=== PATIENT | female | born 1995 | race Two or more races ===

== ENCOUNTER 2018-12-12 16:33 | Emergency (ER) | payer MEDICAID, OTHER ==
[~2018-12-12] VITALS: Ht 157.5 cm; Wt 78.5 kg
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
[2018-12-12] MEDS ORDERED: ACETAMINOPHEN 325 MG TABLET PO ONE (17:30)
[2018-12-12] MEDS ORDERED: ACETAMINOPHEN ES 500 MG TABLET ONE (17:32)
--- NOTE | 2018-12-12 19:00 | NUR ---
Wound cleansed, applied Bacitracin ointment, and covered with bandage. Rx provided, Patient discharged to home in stable condition. Written and verbal after care instructions given. Patient verbalizes understanding of instruction.
[2018-12-12 19:06] VITALS: BP 117/65
== END 2018-12-12 19:07 | disposition home or self-care (01) ==
LOC: ER 16:33
DX: S80.211A Abrasion, right knee, initial encounter (principal); S80.212A Abrasion, left knee, initial encounter; S50.311A Abrasion of right elbow, initial encounter; S60.511A Abrasion of right hand, initial encounter; S09.8XXA Other specified injuries of head, initial encounter; V09.9XXA Pedestrian injured in unspecified transport accident, initial encounter; Y93.55 Activity, bike riding; Y92.410 Unspecified street and highway as the place of occurrence of the external cause; Y99.8 Other external cause status
CPT/HCPCS: 70450; 73080; 73130; 73560 ×2; 84703; 99284; A6402; A6403

== ENCOUNTER 2020-06-04 00:06 | Emergency (ER) | payer OTHER ==
[~2020-06-04] VITALS: Ht 157.5 cm; Wt 80.3 kg
[2020-06-04 00:06] VITALS: BP 120/74
--- NOTE | 2020-06-04 00:43 | NUR ---
Patient discharged to home in stable condition. Written and verbal after care instructions given. Patient verbalizes understanding of instruction.
== END 2020-06-04 00:47 | disposition home or self-care (01) ==
LOC: ER 00:11
DX: R21 Rash and other nonspecific skin eruption (principal)